=== PATIENT | female | born 1955 | race Caucasian/White ===

== ENCOUNTER 2018-02-19 12:45 | Inpatient (IN) | payer MEDICARE, MEDICAID ==
[~2018-02-19] VITALS: Ht 172.7 cm; Wt 103.0 kg
[~2018-02-19 12:45] MED LIST: ASPI-529 PO; CITA40TA11 PO; HYDR-4353 PO; MELO-100 PO; OMEP20TA5 PO
[2018-03-04] MEDS ORDERED: IBUP-1986 PO (14:21)
[2018-03-04 14:34] LABS: BASOPHILS % (AUTO) 0.7 % (0-1); EOSINOPHILS # (AUTO) 0.2 X10'3 (0-0.9); EOSINOPHILS % (AUTO) 3.1 % (0-6); LYMPHOCYTES # (AUTO) 2.5 X10'3 (1.1-4.8); LYMPHOCYTES % (AUTO) 39.5 % (21-51); MEAN CORPUSCULAR HEMOGLOBIN 30.6 PG (27.0-31.0); MEAN CORPUSCULAR HGB CONC 33.9 % (33.0-36.5); MEAN CORPUSCULAR VOLUME 90.1 FL (78-98); MEAN PLATELET VOLUME 7.5 FL (7.4-10.4); MONOCYTES # (AUTO) 0.5 X10'3 (0-0.9); MONOCYTES % (AUTO) 7.2 % (2-12); NEUTROPHILS # (AUTO) 3.2 X10'3 (1.8-7.7); NEUTROPHILS % (AUTO) 49.5 % (42-75); PRE OP HEMATOCRIT 39.6 % (35.0-45.0); PRE OP HEMOGLOBIN 13.4 g/dL (12.0-16.0); PRE OP PLATELET COUNT 233 X10'3 (140-440); RED CELL DISTRIBUTION WIDTH 13.1 % (11.5-14.5)
[2018-03-04 14:49] LABS: ALBUMIN 3.9 G/DL (3.4-5.0); ALBUMIN/GLOBULIN RATIO 1.2 (1.1-1.5); ALKALINE PHOSPHATASE 84 IU/L (46-116); BLOOD UREA NITROGEN 18 MG/DL (7-18); BUN/CREATININE RATIO 25.4 (6.6-38.0); CALCIUM 9.2 MG/DL (8.5-10.1); CHLORIDE 103 MMOL/L (99-107); CREATININE 0.71 MG/DL (0.40-0.90); PRE OP ALT 44 U/L (30-65); PRE OP ANION GAP 9 (8-16); PRE OP AST 30 U/L (10-37); PRE OP GLUCOSE 101 MG/DL (70-104); PRE OP POTASSIUM 3.6 MMOL/L (3.4-5.1); PRE OP SODIUM 141 MMOL/L (135-145); TOTAL CARBON DIOXIDE 29.3 MMOL/L (24-32); TOTAL PROTEIN 7.2 G/DL (6.4-8.2); eGFR 84 ML/MIN
[2018-03-11] MEDS ORDERED: SIMV20TA PO (11:32)
[2018-03-12] VITALS (19 sets, daily range): BP systolic 75–125; BP diastolic 36–85
[2018-03-12] MEDS ORDERED: ringers solution, lacted 1,000 ML IV SCH ×2 (05:00→10:52)
[2018-03-12] MEDS ORDERED: famotidine 20mg tablet PO ONE (05:30)
[2018-03-12] MEDS ORDERED: vancomycin inj 1,500 MG in normal saline 300ml IV soln IV ONE (05:30)
[2018-03-12] MEDS ORDERED: cefazolin/dext.iso 2gm/50ml 50 ML IV ONE (05:30)
[2018-03-12] MEDS ORDERED: ROPIVAcaine 0.5% (5mg/ml) 30ml vial ONE ×2 (07:17→08:51)
[2018-03-12] MEDS ORDERED: tetracaine 1% (10mg/ml) pres. free inj. ONE (07:17)
[2018-03-12] MEDS ORDERED: vancomycin 1,000mg inj ONE (08:50)
[2018-03-12] MEDS ORDERED: ketorolac trometh. 30mg/ml inj. ONE (08:50)
[2018-03-12] MEDS ORDERED: ringers solution, lacted 1,000 ML IV ONE (08:53)
[2018-03-12] MEDS ORDERED: midazolam 2 mg/2 ml injection IV PRN (08:55)
[2018-03-12] MEDS ORDERED: dexmedetomidine 200mcg/2ml inj. IV ONE (09:00)
[2018-03-12] MEDS ORDERED: morphine /PF 1mg/ml 10ml inj. ONE (09:03)
[2018-03-12] MEDS ORDERED: MIDAZolam 1mg/ml 10ml vial ONE (09:03)
[2018-03-12] MEDS ORDERED: BUPIVAcaine/dex-water/PF 7.5 mg/ml 2ml ampul ONE (09:03)
[2018-03-12] MEDS ORDERED: propofol inj 20 ML IV ONE ×2 (09:11)
[2018-03-12] MEDS ORDERED: LIDOcaine 1%/PF 5ML 10 MG/ML VIAL ONE (09:41)
[2018-03-12] MEDS ORDERED: tranexamic acid inj. 1,000 MG in normal saline 100ml IV soln 90 ML IV ONE ×2 (10:30→11:30)
[2018-03-12] MEDS ORDERED: morphine 4 MG/ML inj SYRINge IV PRN ×2 (10:55)
[2018-03-12] MEDS ORDERED: labetalol 20mg/4ml (5mg/ml) syringe IV PRN (10:55)
[2018-03-12] MEDS ORDERED: ondansetron/PF 4mg/2ml inj IV PRN ×3 (10:55→15:10)
[2018-03-12] MEDS ORDERED: fentaNYL/PF 50MCG/1 ML 2ML syringe IV PRN ×2 (10:55)
[2018-03-12] MEDS ORDERED: hydrALAZINE 20mg/ml inj. IV PRN (10:55)
[2018-03-12] MEDS ORDERED: magnesium hydroxide 30ml (MOM) UD suspension PO PRN (12:25)
[2018-03-12] MEDS ORDERED: acetaminophen 325mg tablet PO PRN (12:25)
[2018-03-12] MEDS ORDERED: non-formulary drug (Ibuprofen 1 TAB) PO PRN (12:25)
[2018-03-12] MEDS ORDERED: diphenhydrAMINE 25mg capsule PO PRN ×2 (12:25)
[2018-03-12] MEDS ORDERED: bisacodyl 10mg suppository rectal RC PRN (12:25)
[2018-03-12] MEDS ORDERED: HYDROmorphone 1 mg/ml syringe IV PRN ×2 (12:25)
[2018-03-12] MEDS: gabapentin 300mg capsule PO SCH ×2 (14:18→20:24)
[2018-03-12] MEDS: acetaminophen 325mg tablet PO SCH ×2 (14:18→20:24)
[2018-03-12] MEDS: ketorolac tromethamine 15mg/ml inj. IV SCH ×2 (14:19→20:24)
[2018-03-12] MEDS ORDERED: diphenhydrAMINE 50 mg/ml inj IV PRN (15:10)
[2018-03-12] MEDS: ceFAZolin 1GM/D5W- ADD-VANTAGE 50 ML IV SCH (15:42)
[2018-03-12] MEDS ORDERED: tranexamic acid inj. 1,000 MG in normal saline 100ml IV soln 100 ML IV ONE (15:46)
[2018-03-12] MEDS: potassium cl 20mEq in 1/2 NS 1,000 ML IV SCH ×2 (17:09→20:31)
[2018-03-12] MEDS ORDERED: vancomycin/NS 1 GM ADD-VANTAGE 250 ML IV SCH (20:00)
[2018-03-12] MEDS: sennosides 8.6mg tablet PO SCH (20:24)
[2018-03-12] MEDS: atorvastatin 10mg tablet PO SCH (20:24)
[2018-03-13] VITALS (7 sets, daily range): BP systolic 95–129; BP diastolic 39–67
[2018-03-13] MEDS: acetaminophen 325mg tablet PO SCH ×4 (01:39→21:01)
[2018-03-13] MEDS: ketorolac tromethamine 15mg/ml inj. IV SCH ×2 (01:39→09:29)
[2018-03-13] MEDS: ceFAZolin 1GM/D5W- ADD-VANTAGE 50 ML IV SCH (01:39)
[2018-03-13] MEDS: potassium cl 20mEq in 1/2 NS 1,000 ML IV SCH ×3 (04:22→20:22)
[2018-03-13] MEDS: oxyCODONE IR 5mg (immed. release) tablet PO PRN ×4 (05:26→19:28)
[2018-03-13 06:11] LABS: BASOPHILS % (AUTO) 0.3 % (0-1); EOSINOPHILS # (AUTO) 0.2 X10'3 (0-0.9); EOSINOPHILS % (AUTO) 1.8 % (0-6); HEMATOCRIT 32.9 % (35.0-45.0); HEMOGLOBIN 11.2 g/dl (12.0-16.0); LYMPHOCYTES # (AUTO) 2.1 X10'3 (1.1-4.8); LYMPHOCYTES % (AUTO) 23.8 % (21-51); MEAN CORPUSCULAR HEMOGLOBIN 30.9 PG (27.0-31.0); MEAN CORPUSCULAR VOLUME 90.8 FL (78-98); MEAN PLATELET VOLUME 7.9 FL (7.4-10.4); MONOCYTES # (AUTO) 0.7 X10'3 (0-0.9); MONOCYTES % (AUTO) 8.2 % (2-12); NEUTROPHILS # (AUTO) 5.9 X10'3 (1.8-7.7); NEUTROPHILS % (AUTO) 65.9 % (42-75); PLATELET COUNT 207 X10'3 (140-440); RED BLOOD COUNT 3.62 X10'6 (4.20-5.60); RED CELL DISTRIBUTION WIDTH 13.5 % (11.5-14.5)
[2018-03-13 07:06] LABS: ANION GAP 7 (8-16); CHLORIDE 102 MMOL/L (99-107); POTASSIUM 4.1 MMOL/L (3.5-5.1); SODIUM 137 MMOL/L (135-145)
[2018-03-13] MEDS ORDERED: non-formulary drug (Aspirin (Baby Aspirin) 1 TAB) PO SCH (08:00)
[2018-03-13] MEDS ORDERED: non-formulary drug (Meloxicam* 2 TAB) PO SCH (08:00)
[2018-03-13] MEDS: pantoprazole 40mg Tablet.DR PO SCH (09:19)
[2018-03-13] MEDS: aspirin 325mg tablet PO SCH (09:21)
[2018-03-13] MEDS: citalopram 20mg tablet PO SCH (09:21)
[2018-03-13] MEDS: gabapentin 300mg capsule PO SCH ×3 (09:21→21:00)
[2018-03-13] MEDS: celeCOXIB 100mg capsule PO SCH (21:00)
[2018-03-13] MEDS: atorvastatin 10mg tablet PO SCH (21:00)
[2018-03-13] MEDS: sennosides 8.6mg tablet PO SCH (21:01)
[2018-03-14] MEDS: acetaminophen 325mg tablet PO SCH ×2 (02:00→08:54)
[2018-03-14] MEDS: potassium cl 20mEq in 1/2 NS 1,000 ML IV SCH (03:08)
[2018-03-14] MEDS: oxyCODONE IR 5mg (immed. release) tablet PO PRN ×4 (05:50→20:56)
[2018-03-14 06:00] VITALS: BP 120/58
[2018-03-14 06:07] LABS: BASOPHILS % (AUTO) 0.3 % (0-1); EOSINOPHILS # (AUTO) 0.3 X10'3 (0-0.9); EOSINOPHILS % (AUTO) 3.7 % (0-6); HEMATOCRIT 32.3 % (35.0-45.0); HEMOGLOBIN 10.9 g/dl (12.0-16.0); LYMPHOCYTES # (AUTO) 1.9 X10'3 (1.1-4.8); LYMPHOCYTES % (AUTO) 27.5 % (21-51); MEAN CORPUSCULAR HEMOGLOBIN 30.5 PG (27.0-31.0); MEAN CORPUSCULAR HGB CONC 33.7 % (33.0-36.5); MEAN CORPUSCULAR VOLUME 90.7 FL (78-98); MEAN PLATELET VOLUME 7.7 FL (7.4-10.4); MONOCYTES # (AUTO) 0.6 X10'3 (0-0.9); MONOCYTES % (AUTO) 8.6 % (2-12); NEUTROPHILS # (AUTO) 4.1 X10'3 (1.8-7.7); NEUTROPHILS % (AUTO) 59.9 % (42-75); PLATELET COUNT 172 X10'3 (140-440); RED BLOOD COUNT 3.56 X10'6 (4.20-5.60); RED CELL DISTRIBUTION WIDTH 13.5 % (11.5-14.5); WHITE BLOOD COUNT 6.8 X10'3 (4.5-11.0)
[2018-03-14] MEDS ORDERED: magnesium citrate 296ml oral solution PO ONE (08:20)
[2018-03-14] MEDS: citalopram 20mg tablet PO SCH (08:53)
[2018-03-14] MEDS: celeCOXIB 100mg capsule PO SCH ×2 (08:53→20:56)
[2018-03-14] MEDS: gabapentin 300mg capsule PO SCH ×3 (08:54→20:56)
[2018-03-14] MEDS: pantoprazole 40mg Tablet.DR PO SCH (08:54)
[2018-03-14] MEDS: aspirin 325mg tablet PO SCH (08:54)
[2018-03-14] MEDS ORDERED: ASPI-1 PO (09:57)
[2018-03-14 10:00] VITALS: BP 153/52
[2018-03-14] MEDS ORDERED: acetaminophen 325mg tablet PO PRN (12:25)
[2018-03-14 18:00] VITALS: BP 114/40
[2018-03-14] MEDS: sennosides 8.6mg tablet PO SCH (20:56)
[2018-03-14] MEDS: atorvastatin 10mg tablet PO SCH (20:56)
[2018-03-14 22:00] VITALS: BP 131/47
[2018-03-15] MEDS: oxyCODONE IR 5mg (immed. release) tablet PO PRN ×4 (00:56→13:04)
[2018-03-15 06:00] VITALS: BP 131/50
[2018-03-15 06:08] LABS: BASOPHILS % (AUTO) 0.5 % (0-1); EOSINOPHILS # (AUTO) 0.4 X10'3 (0-0.9); EOSINOPHILS % (AUTO) 4.8 % (0-6); HEMATOCRIT 33.8 % (35.0-45.0); HEMOGLOBIN 11.1 g/dl (12.0-16.0); LYMPHOCYTES # (AUTO) 2.5 X10'3 (1.1-4.8); LYMPHOCYTES % (AUTO) 33.7 % (21-51); MEAN CORPUSCULAR HEMOGLOBIN 30.4 PG (27.0-31.0); MEAN PLATELET VOLUME 7.8 FL (7.4-10.4); MONOCYTES # (AUTO) 0.6 X10'3 (0-0.9); MONOCYTES % (AUTO) 8.3 % (2-12); NEUTROPHILS # (AUTO) 3.9 X10'3 (1.8-7.7); NEUTROPHILS % (AUTO) 52.7 % (42-75); PLATELET COUNT 200 X10'3 (140-440); RED BLOOD COUNT 3.67 X10'6 (4.20-5.60); RED CELL DISTRIBUTION WIDTH 13.7 % (11.5-14.5); WHITE BLOOD COUNT 7.3 X10'3 (4.5-11.0)
[2018-03-15] MEDS: pantoprazole 40mg Tablet.DR PO SCH (07:08)
[2018-03-15] MEDS: celeCOXIB 100mg capsule PO SCH (07:08)
[2018-03-15] MEDS: aspirin 325mg tablet PO SCH (07:08)
[2018-03-15] MEDS: citalopram 20mg tablet PO SCH (07:08)
[2018-03-15] MEDS: gabapentin 300mg capsule PO SCH ×2 (07:08→13:03)
[2018-03-15 10:00] VITALS: BP 112/43
== END 2018-03-15 15:50 | disposition home health service (06) | DRG 470 ==
LOC: EDSTATUS 12:45 → PAS IN 03-12 06:33 → EDSTATUS 03-12 08:15 → ORTHO 4S 03-12 13:30
PROVIDERS: ADMIT Orthopaedic Surgery; ATTEND Orthopaedic Surgery
PROC: 8E0YXBZ Computer Assisted Procedure of Lower Extremity (ICD-10-PCS; 2018-03-12)
PROC: 8E0YXCZ Robotic Assisted Procedure of Lower Extremity (ICD-10-PCS; 2018-03-12)
PROC: 3E0T3BZ Introduction of Anesthetic Agent into Peripheral Nerves and Plexi, Percutaneous Approach (ICD-10-PCS; 2018-03-12)
PROC: 0SRC0J9 Replacement of Right Knee Joint with Synthetic Substitute, Cemented, Open Approach (ICD-10-PCS; principal; 2018-03-12 09:46)
DX: M17.11 Unilateral primary osteoarthritis, right knee (principal); D62 Acute posthemorrhagic anemia; E78.5 Hyperlipidemia, unspecified; I10 Essential (primary) hypertension; E66.01 Morbid (severe) obesity due to excess calories; K21.9 Gastro-esophageal reflux disease without esophagitis; M21.061 Valgus deformity, not elsewhere classified, right knee; I25.119 Atherosclerotic heart disease of native coronary artery with unspecified angina pectoris; F32.9 Major depressive disorder, single episode, unspecified; Z79.899 Other long term (current) drug therapy; Z79.82 Long term (current) use of aspirin; Z87.891 Personal history of nicotine dependence; Z82.3 Family history of stroke; Z82.49 Family history of ischemic heart disease and other diseases of the circulatory system; Z68.34 Body mass index [BMI] 34.0-34.9, adult
CPT/HCPCS: 36415; 80051; 80053; 85025; 85610; 85730; 87070; 97110; 97116; 97161; 97530; A6455; A7000; C1713; C1758; C1776; G0378; J0690; J1200; J1885; J2001; J2250; J2274; J2405; J2704; J2795; J3370; J3490; J7030; J7120; Q0163